=== PATIENT | male | born 1935 | race Caucasian/White ===

== ENCOUNTER 2023-10-26 08:33 | Inpatient (IN) | payer MEDICARE ==
[2023-10-26 10:01] LABS: #Eosinphils 0.2 10x3/uL (0.0-0.5); #Monocytes 0.6 10x3/uL (0.0-1.1); #Neutrophils 8.5 10x3/uL (1.5-8.4); %Basophils 0.4 % (0.0-2.0); %Eosinophils 2.1 % (0.0-6.0); %Lymphocytes 6.4 % (18.0-47.0); %Monocytes 6.1 % (0.0-10.0); %Neutrophils 84.3 % (40.0-75.0); Hematocrit 29.3 % (38.8-50.0); Mean Corpuscular HGB CONC 34.1 g/dL (32.0-36.0); Mean Corpuscular Hemoglobin 35.2 pg (27.0-33.0); Mean Corpuscular Volume 103.2 fl (81.2-95.1); Mean Platelet Volume 9.3 fl (7.4-10.4); Platelet Count 185 10x3/uL (150-450); RBC Distribution Width 13.3 % (11.5-14.5); Red Blood Cell (RBC) Count 2.84 10x6/uL (4.32-5.72); White Blood Cell (WBC) Count 10.1 10x3/uL (3.5-10.5)
[2023-10-26 10:08] LABS: ALT (SGPT) 8 U/L (8-55); AST (SGOT) 19 U/L (5-34); Albumin 3.1 g/dL (3.4-4.8); Alkaline Phosphatase 79 U/L (40-110); Anion Gap 16 mmol/L (10-20); BUN (Urea Nitrogen) 23 mg/dL (8.4-25.7); Bilirubin, Total 0.5 mg/dL (0.2-1.2); Calc. Creatinine Clearance 0 mL/min (70-130); Calcium 8.6 mg/dL (7.8-10.44); Carbon Dioxide 27 mmol/L (23-31); Chloride 101 mmol/L (98-107); Estimated GFR 82; Globulin 3.1 g/dL (2.4-3.5); Glucose 131 mg/dL (83-110); Potassium 4.2 mmol/L (3.5-5.1); Protein, Total 6.2 g/dL (5.8-8.1); Sodium 140 mmol/L (136-145)
[2023-10-26 10:15] LABS: Troponin I 0.161 ng/mL (< 0.028)
[2023-10-26 10:40] LABS: Bilirubin Neg (Negative); Blood, Urine Negative (Negative); Clarity Clear (Clear); Glucose, Urine (Dipstick) Normal (Negative); Ketone, Urine 5 mg/dL (Negative); Leukocyte 25 (Negative); Nitrite Negative (Negative); Protein, Urine (Dipstick) 30 mg/dl (Neg-Trace); pH, Urine 6.5 (5.0-9.0)
[2023-10-26 10:44] LABS: SARS-CoV-2 NAA Rapid Test Not Detected (NotDetected)
[2023-10-26 11:09] LABS: Bacteria/HPF None Seen HPF (None Seen); CAUTI Indications for Culture Dysuria,urgency,freq; RBC/HPF None Seen HPF (0-3); Squamous Epithelial 0-3 HPF (0-3); Urine Culture Reflex No No; WBC/HPF 0-3 HPF (0-3)
[2023-10-26] MEDS ORDERED: Furosemide 40 MG (4 mL) VIAL ONE (11:19)
[2023-10-26] MEDS ORDERED: Ondansetron PF 4 MG/2 ML Vial IVP PRN (14:07)
[2023-10-27] MEDS ORDERED: Atorvastatin Calcium 10 MG TAB ONE (00:07)
[2023-10-27] MEDS: Atorvastatin Calcium 20 MG TAB PO SCH ×2 (00:12→20:42)
[2023-10-27 06:09] LABS: Anion Gap 13 mmol/L (10-20); BUN (Urea Nitrogen) 22 mg/dL (8.4-25.7); Calc. Creatinine Clearance 58 mL/min (70-130); Calcium 8.5 mg/dL (7.8-10.44); Carbon Dioxide 31 mmol/L (23-31); Chloride 100 mmol/L (98-107); Estimated GFR 83; Glucose 86 mg/dL (83-110); Potassium 3.2 mmol/L (3.5-5.1); Sodium 141 mmol/L (136-145)
[2023-10-27] MEDS ORDERED: Furosemide 40 MG (4 mL) VIAL ONE (06:12)
[2023-10-27] MEDS: Furosemide 40 MG (4 mL) VIAL SLOW IVP SCH ×2 (06:24→15:59)
[2023-10-27 07:06] LABS: #Eosinphils 0.2 10x3/uL (0.0-0.5); #Monocytes 0.6 10x3/uL (0.0-1.1); #Neutrophils 6.2 10x3/uL (1.5-8.4); %Basophils 0.4 % (0.0-2.0); %Lymphocytes 12.5 % (18.0-47.0); %Monocytes 7.5 % (0.0-10.0); %Neutrophils 77.2 % (40.0-75.0); Hematocrit 27.3 % (38.8-50.0); Hemoglobin 9.3 g/dL (13.5-17.5); Mean Corpuscular HGB CONC 34.1 g/dL (32.0-36.0); Mean Corpuscular Hemoglobin 35.1 pg (27.0-33.0); Mean Platelet Volume 9.3 fl (7.4-10.4); Platelet Count 187 10x3/uL (150-450); RBC Distribution Width 13.2 % (11.5-14.5); Red Blood Cell (RBC) Count 2.65 10x6/uL (4.32-5.72); White Blood Cell (WBC) Count 8.1 10x3/uL (3.5-10.5)
[2023-10-27] MEDS ORDERED: Enoxaparin 40 MG (0.4 mL) SYRINGE ONE (11:08)
[2023-10-27] MEDS ORDERED: Aspirin 81 mg Enteric Coated Tablet ONE (11:08)
[2023-10-27] MEDS ORDERED: Potassium Bicarbonate/Cit Ac 20 MEQ TAB ONE (11:09)
[2023-10-27] MEDS: Potassium Bicarbonate/Cit Ac 20 MEQ TAB PO SCH ×2 (11:13→18:38)
[2023-10-27] MEDS: Aspirin 81 mg Enteric Coated Tablet PO SCH (11:13)
[2023-10-27] MEDS: Enoxaparin 40 MG (0.4 mL) SYRINGE SC SCH (11:13)
[2023-10-28] MEDS: Furosemide 40 MG (4 mL) VIAL SLOW IVP SCH ×2 (07:44→16:25)
[2023-10-28 08:41] LABS: Actual Bicarbonate (HCO3a) 30.2 mEq/L (22-28); Analyzer IN Cardio CS ICU; Base Excess (BEa) 6.4 mEq/L (-2.0 to +3.0); CO2 Tension 40.2 mmHg (35.0-45.0); Calcium, Ionized (arterial) 1.15 mmol/L (1.12-1.30); Carboxyhemoglobin (COHb) 0.5 gm% (0.0-3.0); Hematocrit-ABG 34 % (42.0-52.0); Hemoglobin (Hb) 11.4 g/dL (14.0-18.0); O2 Tension (PaO2), arterial 54.5 mmHg (> 60.0); Puncture Site LBA; pH, Arterial 7.493 (7.35-7.45)
[2023-10-28] MEDS ORDERED: Iopamidol 370 76% 100 ML VIAL ONE (08:59)
[2023-10-28] MEDS ORDERED: Potassium Chloride 20 MEQ TAB PO SCH (09:30)
[2023-10-28 09:47] LABS: #Monocytes 0.7 10x3/uL (0.0-1.1); #Neutrophils 9.7 10x3/uL (1.5-8.4); %Basophils 0.3 % (0.0-2.0); %Eosinophils 0.2 % (0.0-6.0); %Lymphocytes 4.4 % (18.0-47.0); %Monocytes 6.6 % (0.0-10.0); %Neutrophils 87.6 % (40.0-75.0); Hematocrit 29.6 % (38.8-50.0); Hemoglobin 10.2 g/dL (13.5-17.5); Mean Corpuscular HGB CONC 34.5 g/dL (32.0-36.0); Mean Corpuscular Hemoglobin 35.5 pg (27.0-33.0); Mean Corpuscular Volume 103.1 fl (81.2-95.1); Mean Platelet Volume 9.1 fl (7.4-10.4); Platelet Count 204 10x3/uL (150-450); RBC Distribution Width 13.1 % (11.5-14.5); Red Blood Cell (RBC) Count 2.87 10x6/uL (4.32-5.72); White Blood Cell (WBC) Count 11.1 10x3/uL (3.5-10.5)
[2023-10-28 09:55] LABS: Anion Gap 13 mmol/L (10-20); BUN (Urea Nitrogen) 24 mg/dL (8.4-25.7); Calc. Creatinine Clearance 59 mL/min (70-130); Calcium 8.9 mg/dL (7.8-10.44); Carbon Dioxide 32 mmol/L (23-31); Chloride 99 mmol/L (98-107); Estimated GFR 84; Glucose 134 mg/dL (83-110); Potassium 3.3 mmol/L (3.5-5.1); Sodium 141 mmol/L (136-145)
[2023-10-28] MEDS: Carbidopa/Levodopa 25-100 mg Tablet PO SCH ×3 (10:45→20:28)
[2023-10-28] MEDS: Enoxaparin 40 MG (0.4 mL) SYRINGE SC SCH (10:45)
[2023-10-28] MEDS: Aspirin 81 mg Enteric Coated Tablet PO SCH (10:46)
[2023-10-28 13:52] LABS: Critical Call Chem Troponin I NUR.BS8 AT 1352; Troponin I 0.653 ng/mL (< 0.028)
[2023-10-28] MEDS ORDERED: Docusate 100 MG CAP PO SCH (14:45)
[2023-10-28] MEDS ORDERED: cefTRIAXone (ROCEPHIN) 1 GM VIAL ONE (15:25)
[2023-10-28] MEDS: Carvedilol 3.125 MG TAB PO SCH (16:34)
[2023-10-28] MEDS: cefTRIAXone\\ROCEPHIN 1 GM in Sodium Chloride 0.9% 100 ML IVPB SCH (16:34)
[2023-10-28] MEDS: Azithromycin 500 MG in Sodium Chloride 0.9% 250 ML 250 ML IVPB SCH (18:12)
[2023-10-28 19:05] LABS: Critical Call Chem Troponin I NUR.BS8 AT 1904; Troponin I 0.784 ng/mL (< 0.028)
[2023-10-28] MEDS: Acetaminophen 325 MG TAB PO PRN (20:27)
[2023-10-28] MEDS: Atorvastatin Calcium 10 MG TAB PO SCH (20:28)
[2023-10-28] MEDS: Docusate 100 MG CAP PO SCH (20:28)
[2023-10-29 04:55] LABS: Anion Gap 15 mmol/L (10-20); BUN (Urea Nitrogen) 25 mg/dL (8.4-25.7); Calc. Creatinine Clearance 62 mL/min (70-130); Calcium 8.7 mg/dL (7.8-10.44); Carbon Dioxide 29 mmol/L (23-31); Chloride 103 mmol/L (98-107); Estimated GFR 85; Glucose 106 mg/dL (83-110); Potassium 3.9 mmol/L (3.5-5.1); Sodium 143 mmol/L (136-145)
[2023-10-29 05:00] LABS: #Eosinphils 0.2 10x3/uL (0.0-0.5); #Monocytes 0.9 10x3/uL (0.0-1.1); #Neutrophils 8.3 10x3/uL (1.5-8.4); %Basophils 0.4 % (0.0-2.0); %Eosinophils 2.1 % (0.0-6.0); %Lymphocytes 10.6 % (18.0-47.0); %Monocytes 8.1 % (0.0-10.0); %Neutrophils 78.2 % (40.0-75.0); Hematocrit 29.1 % (38.8-50.0); Hemoglobin 9.9 g/dL (13.5-17.5); Mean Corpuscular Hemoglobin 34.3 pg (27.0-33.0); Mean Corpuscular Volume 100.7 fl (81.2-95.1); Platelet Count 213 10x3/uL (150-450); RBC Distribution Width 13.2 % (11.5-14.5); Red Blood Cell (RBC) Count 2.89 10x6/uL (4.32-5.72); White Blood Cell (WBC) Count 10.6 10x3/uL (3.5-10.5)
[2023-10-29] MEDS: Furosemide 40 MG (4 mL) VIAL SLOW IVP SCH ×2 (06:35→14:05)
[2023-10-29] MEDS: Enoxaparin 40 MG (0.4 mL) SYRINGE SC SCH (09:00)
[2023-10-29] MEDS: Carbidopa/Levodopa 25-100 mg Tablet PO SCH ×3 (09:00→21:05)
[2023-10-29] MEDS: Carvedilol 3.125 MG TAB PO SCH ×2 (09:00→17:43)
[2023-10-29] MEDS: Valsartan 80 MG TAB PO SCH (09:00)
[2023-10-29] MEDS: Docusate 100 MG CAP PO SCH ×2 (09:00→21:04)
[2023-10-29] MEDS: Aspirin 81 mg Enteric Coated Tablet PO SCH (09:00)
[2023-10-29] MEDS: CO Q-10 CAPSULE 50 MG PO SCH (09:00)
[2023-10-29] MEDS: Acetaminophen 325 MG TAB PO PRN (11:26)
[2023-10-29] MEDS: Azithromycin 500 MG in Sodium Chloride 0.9% 250 ML 250 ML IVPB SCH (14:30)
[2023-10-29] MEDS: cefTRIAXone\\ROCEPHIN 1 GM in Sodium Chloride 0.9% 100 ML IVPB SCH (14:55)
[2023-10-29] MEDS: Atorvastatin Calcium 10 MG TAB PO SCH (21:05)
[2023-10-30 04:50] LABS: Legionella Urinary Ag Negative (Negative); Strep pneumo Urine Ag NEGATIVE (NEGATIVE)
[2023-10-30 05:54] LABS: Anion Gap 14 mmol/L (10-20); BUN (Urea Nitrogen) 21 mg/dL (8.4-25.7); Calc. Creatinine Clearance 62 mL/min (70-130); Calcium 8.7 mg/dL (7.8-10.44); Carbon Dioxide 30 mmol/L (23-31); Chloride 101 mmol/L (98-107); Estimated GFR 87; Glucose 97 mg/dL (83-110); Potassium 3.4 mmol/L (3.5-5.1); Sodium 142 mmol/L (136-145)
[2023-10-30 05:59] LABS: #Eosinphils 0.3 10x3/uL (0.0-0.5); #Monocytes 0.6 10x3/uL (0.0-1.1); #Neutrophils 7.3 10x3/uL (1.5-8.4); %Basophils 0.4 % (0.0-2.0); %Eosinophils 2.8 % (0.0-6.0); %Lymphocytes 11.3 % (18.0-47.0); %Monocytes 6.7 % (0.0-10.0); %Neutrophils 78.2 % (40.0-75.0); Hematocrit 30.4 % (38.8-50.0); Mean Corpuscular HGB CONC 32.9 g/dL (32.0-36.0); Mean Corpuscular Hemoglobin 34.7 pg (27.0-33.0); Mean Corpuscular Volume 105.6 fl (81.2-95.1); Mean Platelet Volume 9.3 fl (7.4-10.4); Platelet Count 234 10x3/uL (150-450); RBC Distribution Width 13.2 % (11.5-14.5); Red Blood Cell (RBC) Count 2.88 10x6/uL (4.32-5.72); White Blood Cell (WBC) Count 9.4 10x3/uL (3.5-10.5)
[2023-10-30] MEDS: Furosemide 40 MG (4 mL) VIAL SLOW IVP SCH ×2 (06:34→14:14)
[2023-10-30] MEDS ORDERED: Potassium Chloride 20 MEQ TAB PO SCH (08:15)
[2023-10-30 08:36] LABS: Magnesium 1.9 mg/dL (1.6-2.6)
[2023-10-30] MEDS: Aspirin 81 mg Enteric Coated Tablet PO SCH (08:59)
[2023-10-30] MEDS: Carvedilol 3.125 MG TAB PO SCH (08:59)
[2023-10-30] MEDS: CO Q-10 CAPSULE 50 MG PO SCH (08:59)
[2023-10-30] MEDS: Docusate 100 MG CAP PO SCH (08:59)
[2023-10-30] MEDS: Enoxaparin 40 MG (0.4 mL) SYRINGE SC SCH (09:00)
[2023-10-30] MEDS: Carbidopa/Levodopa 25-100 mg Tablet PO SCH (09:02)
[2023-10-30] MEDS: Valsartan 80 MG TAB PO SCH (09:03)
[2023-10-30 12:27] VITALS: BP 107/56; TEMP 97.5
[2023-10-30] MEDS: Azithromycin 500 MG in Sodium Chloride 0.9% 250 ML 250 ML IVPB SCH (14:14)
== END 2023-10-30 15:10 | disposition hospice, home (50) | DRG 177 ==
LOC: CSHERS 08:33 → CSHERHOLD 11:44 → CSHTELE 10-27 13:51 → CSHERHOLD 10-27 14:13 → CSHTELE 10-27 14:14
PROVIDERS: ADMIT Internal Medicine; ATTEND Family Medicine
PROC: 4A033R1 Measurement of Arterial Saturation, Peripheral, Percutaneous Approach (ICD-10-PCS; principal; 2023-10-28)
DX: J69.0 Pneumonitis due to inhalation of food and vomit (principal); I21.A1 Myocardial infarction type 2; J96.02 Acute respiratory failure with hypercapnia; I50.43 Acute on chronic combined systolic (congestive) and diastolic (congestive) heart failure; J96.01 Acute respiratory failure with hypoxia; I31.39 Other pericardial effusion (noninflammatory); Z66 Do not resuscitate; I25.10 Atherosclerotic heart disease of native coronary artery without angina pectoris; Z95.0 Presence of cardiac pacemaker; Z95.5 Presence of coronary angioplasty implant and graft; Z11.52 Encounter for screening for COVID-19; E87.6 Hypokalemia; G20.A1 Parkinson's disease without dyskinesia, without mention of fluctuations; Z79.899 Other long term (current) drug therapy; I11.0 Hypertensive heart disease with heart failure; I35.0 Nonrheumatic aortic (valve) stenosis
CPT/HCPCS: 36415; 36416; 36600; 71045; 71275; 80048; 80053; 81001; 82805; 83735; 83880; 84484; 85025; 87449; 87633; 87899; 93005; 93306; 94760; 96374; J0456; J0696; J1650; J1940; J3490; J7050; Q9967